=== PATIENT | female | born 1970 | race Hispanic/Latino ===

== ENCOUNTER 2016-09-15 05:53 | Emergency (ER) | payer OTHER ==
[2016-09-15 06:08] VITALS: BP 120/82
--- NOTE | 2016-09-15 06:44 | XRay Report ---
FINAL REPORT PROCEDURE: XR SHOULDER 2 LT TECHNIQUE: LEFT shoulder radiographs including AP views in internal and external rotation and abduction. CPT 42110 HISTORY: SWELLING, PAIN, TENDERNESS L SHOULDER COMPARISON: No prior studies are available for comparison. FINDINGS: Fracture (s) and/or Dislocation(s): None . Joint space(s): Mild narrowing of the joint spaces. Slight spur formation off the acromioclavicular joint.. Soft tissues: Normal . Bone mineralization: Normal . Foreign bodies: None . IMPRESSION: There is no evidence of an acute fracture or dislocation. Mild arthritis
--- NOTE | 2016-09-15 06:45 | XRay Report ---
FINAL REPORT PROCEDURE: XR CHEST ROUTINE 2V TECHNIQUE: PA and lateral chest radiographs were obtained. CPT 10148 HISTORY: Shortness of breath COMPARISON: No prior studies are available for comparison. FINDINGS: Heart: Normal. Mediastinum/Vessels: Normal. Lungs/Pleural space: Normal. Bony thorax: No acute osseous abnormality. Other: IMPRESSION: Normal examination.
[2016-09-15 07:00] LABS: Basophils % (Auto) 0.4 % (0.0-1.8); Eosinophils % (Auto) 3.5 % (0.0-4.3); Hematocrit 42.2 % (30.3-42.9); Hemoglobin 14.4 gm/dl (10.1-14.3); Mean Corpuscular HGB Conc 34 % (30-34); Mean Corpuscular Hemoglobin 32 pg (28-32); Mean Corpuscular Volume 94 fl (79-97); Platelet Count 173 K/mm3 (140-440); Red Cell Distribution Width 12.8 % (13.2-15.2); White Blood Count 7.1 K/mm3 (4.5-11.0)
[2016-09-15 07:14] LABS: Anion Gap 18 mmol/L; BUN/Creatinine Ratio 17.14; Blood Urea Nitrogen 12 mg/dL (7-17); Calcium 9.3 mg/dL (8.4-10.2); Carbon Dioxide 25 mmol/L (22-30); Chloride 101.8 mmol/L (98-107); Glucose 106 mg/dL (65-100); Potassium 4.1 mmol/L (3.6-5.0); Sodium 141 mmol/L (137-145)
--- NOTE | 2016-09-16 14:12 | ED Elopement Review ---
ED Pt Elopement review - Results review Lab results: Laboratory Tests 09/15/16 09/15/16 06:09 Unknown WBC 7.1 RBC 4.50 Hgb 14.4 H Hct 42.2 MCV 94 MCH 32 MCHC 34 RDW 12.8 L Plt Count 173 Lymph % (Auto) 26.3 [place] % (Auto) 7.6 H Eos % (Auto) 3.5 Baso % (Auto) 0.4 Lymph # 1.9 [place] # 0.5 Eos # 0.3 Baso # 0.0 Seg Neutrophils % 62.2 Seg Neutrophils # 4.4 Sodium 141 Potassium 4.1 Chloride 101.8 Carbon Dioxide 25 Anion Gap 18 BUN 12 Creatinine 0.7 Estimated GFR > 60 BUN/Creatinine Ratio 17.14 Glucose 106 H Calcium 9.3 Troponin T < 0.010 - Call Back decision Pt Call Back Decision: No action required
== END 2016-09-15 08:51 | disposition left against medical advice (07) ==
LOC: ED 05:53
DX: M54.2 Cervicalgia (principal); R07.9 Chest pain, unspecified; Z53.21 Procedure and treatment not carried out due to patient leaving prior to being seen by health care provider
CPT/HCPCS: 36415; 71020; 80048; 84484; 85025; 93005; 93010